=== PATIENT | female | born 1995 | race Caucasian/White ===

== ENCOUNTER 2019-04-16 17:27 | Emergency (ER) | payer MEDICAID, OTHER ==
[~2019-04-16] VITALS: Ht 167.6 cm; Wt 98.6 kg
[~2019-04-16 17:27] MED LIST: COL100C PO; HYDR-2514 PO; NO HOME MEDS
[2019-04-16 17:29] VITALS: BP 141/74
[2019-04-16] MEDS ORDERED: ketorolac tromethamine 15mg/ml inj. IM ONE (18:10)
[2019-04-16] MEDS ORDERED: ketorolac trometh. 30mg/ml inj. IV ONE (18:15)
[2019-04-16] MEDS ORDERED: CYCL-1 PO (18:40)
[2019-04-16] MEDS ORDERED: IBUP-1984 PO (18:40)
== END 2019-04-16 19:14 | disposition home or self-care (01) ==
LOC: ER 17:28
DX: M54.6 Pain in thoracic spine (principal); R05 Cough; R09.81 Nasal congestion; Z79.899 Other long term (current) drug therapy
CPT/HCPCS: 72070; 96374; 99283; J1885

== ENCOUNTER 2021-05-07 20:27 | Emergency (ER) | payer MEDICAID ==
[~2021-05-07] VITALS: Ht 165.1 cm; Wt 105.0 kg
[~2021-05-07 20:27] MED LIST changes: +CYCL-1 PO
[2021-05-07 20:31] VITALS: BP 145/93
[2021-05-07 20:54] LABS: BASOPHILS # (AUTO) 0.1 X10'3 (0-0.2); BASOPHILS % (AUTO) 0.5 % (0-1); EOSINOPHILS # (AUTO) 0.3 X10'3 (0-0.9); EOSINOPHILS % (AUTO) 2.3 % (0-6); HEMATOCRIT 41.1 % (35.0-45.0); HEMOGLOBIN 13.9 g/dl (12.0-16.0); LYMPHOCYTES # (AUTO) 3.6 X10'3 (1.1-4.8); LYMPHOCYTES % (AUTO) 29.1 % (21-51); MEAN CORPUSCULAR HEMOGLOBIN 28.7 PG (27.0-31.0); MEAN CORPUSCULAR HGB CONC 33.8 g/dL (33.0-36.5); MEAN PLATELET VOLUME 8.4 FL (7.4-10.4); MONOCYTES % (AUTO) 8.1 % (2-12); NEUTROPHILS # (AUTO) 7.4 X10'3 (1.8-7.7); PLATELET COUNT 319 X10'3 (140-440); RED BLOOD COUNT 4.84 X10'6 (4.20-5.60); RED CELL DISTRIBUTION WIDTH 13.5 % (11.5-14.5); WHITE BLOOD COUNT 12.3 X10'3 (4.5-11.0)
[2021-05-07 20:58] LABS: CLARITY,URINE CLOUDY (Clear); COLOR,URINE YELLOW (Yellow); GLUCOSE, URINE NEGATIVE (Neg); KETONES,URINE NEGATIVE (Neg); LEUKOCYTE ESTERASE ,URINE MODERATE (Neg); NITRITES, URINE POSITIVE (Neg); OCCULT BLOOD,URINE LARGE (Neg); PROTEIN,URINE 100 mg/dl (Neg); URINE HCG NEGATIVE (NEG); UROBILINOGEN,URINE 0.2 E.U/dL (0.2-1.0)
[2021-05-07 21:06] LABS: UA COLLECTION TYPE CLN CATCH MIDSTREAM
[2021-05-07 21:07] LABS: SQUAMOUS EPITHELIAL CELL,UR FEW /LPF (FEW)
[2021-05-07 21:08] LABS: BACTERIA,URINE 2+ /HPF (Neg); RBC,URINE 20-50 /HPF (0-2)
[2021-05-07 21:09] LABS: WBC,URINE 30-50 /HPF (0-4)
[2021-05-07 21:10] LABS: WBC CLUMPS,URINE MODERATE /HPF (NEGATIVE)
[2021-05-07 21:10] LABS: ALANINE AMINOTRANSFERASE 31 U/L (12-78); ALBUMIN 3.8 G/DL (3.4-5.0); ALKALINE PHOSPHATASE 78 IU/L (46-116); ASPARTATE AMINO TRANSFERASE 18 U/L (10-37); BILIRUBIN,TOTAL 0.3 MG/DL (0.1-1.0); BLOOD UREA NITROGEN 13 MG/DL (7-18); BUN/CREATININE RATIO 14.8 (6.6-38.0); CALCIUM 9.1 MG/DL (8.5-10.1); CREATININE 0.88 MG/DL (0.40-0.90); GLUCOSE 101 MG/DL (70-104); TOTAL CARBON DIOXIDE 27.2 MMOL/L (24-32); TOTAL PROTEIN 7.6 G/DL (6.4-8.2); eGFR 78 ML/MIN
[2021-05-07] MEDS ORDERED: ketorolac trometh. 30mg/ml inj. IV ONE (21:20)
[2021-05-07] MEDS ORDERED: morphine 4 MG/ML inj SYRINge IV ONE ×2 (21:20→23:10)
[2021-05-07 21:21] LABS: ANION GAP 10 (8-16); CHLORIDE 104 MMOL/L (99-107); POTASSIUM 4.3 MMOL/L (3.5-5.1); SODIUM 141 MMOL/L (135-145)
[2021-05-07] MEDS ORDERED: normal saline 1000ML IV soln IV ONE (21:30)
[2021-05-07] MEDS ORDERED: CefTRIAXone 2gm/D5W 50ml BAG 50 ML IV ONE (21:30)
[2021-05-07] MEDS ORDERED: HYDR-3965 PO (23:05)
[2021-05-07] MEDS ORDERED: ONDA4TAB6 PO (23:05)
[2021-05-07] MEDS ORDERED: LEVO500T90 PO (23:05)
[2021-05-07] MEDS ORDERED: ondansetron 4mg rapidly disintigrating tab PO ONE (23:10)
== END 2021-05-07 23:34 | disposition home or self-care (01) ==
LOC: ER 20:28
DX: N10 Acute pyelonephritis (principal); R10.84 Generalized abdominal pain; R11.2 Nausea with vomiting, unspecified; R30.9 Painful micturition, unspecified; Z88.8 Allergy status to other drugs, medicaments and biological substances
CPT/HCPCS: 36415; 74176; 80053; 81001; 81025; 85025; 87077; 87088; 87186; 96365; 96375; 96376; 99284; J0696; J1885; J2270; J7030

== ENCOUNTER 2023-03-11 05:58 | Emergency (ER) | payer MEDICAID ==
[~2023-03-11] VITALS: Ht 162.6 cm; Wt 100.0 kg
[~2023-03-11 05:58] MED LIST changes: +ONDA4TAB6 PO
[2023-03-11 06:04] VITALS: TEMP 98.1
[2023-03-11 07:35] VITALS: BP 133/97; PULSE 91; RESP 18; O2SAT 99
[2023-03-11] MEDS ORDERED: methylPREDNISolone sod succ 125mg/2ml vial IM ONE (07:35)
[2023-03-11] MEDS ORDERED: diphenhydrAMINE 50 mg/ml inj IM ONE (07:35)
[2023-03-11] MEDS ORDERED: METH4TAB81 PO ×3 (07:47→07:51)
== END 2023-03-11 08:03 | disposition home or self-care (01) ==
LOC: ER 05:59
DX: L23.4 Allergic contact dermatitis due to dyes (principal); Z79.899 Other long term (current) drug therapy
CPT/HCPCS: 96372; 99284; J1200; J2930